=== PATIENT | female | born 1950 | race Caucasian/White ===

== ENCOUNTER → 2024-01-30 | Emergency (ER) | payer OTHER ==
[~2024-01-30] MED LIST: HYDROCODONE/APAP 10/325 TAB ONE; ONDANSETRON 4 MG (ODT) TAB ONE
--- NOTE | 2024-01-30 18:42 | RAD REPORT ---
EXAM DESCRIPTION: RAD - Hip Right 2 View - 01/30/2024 6:17 pm CLINICAL HISTORY: PAIN COMPARISON: None FINDINGS/IMPRESSION: No acute fracture. No malalignment. Mild to moderate right acetabular degenerat meliton changes.
--- NOTE | 2024-01-30 18:42 | RAD REPORT ---
EXAM DESCRIPTION: RAD - Elbow Right 3 View - 01/30/2024 6:17 pm CLINICAL HISTORY: PAIN COMPARISON: No comparisons FINDINGS/IMPRESSION: No acute fracture. No malalignment. No significant focal degenerative changes.
--- NOTE | 2024-01-30 18:49 | EDPHYS ---
Physician Documentation [facility] Name: Arlyn Morocho Age: 74 yrs Sex: Female : 1950 Arrival Date: 01/30/2024 Time: 17:39 Bed 5 Private MD: ED Physician Isaak Michaels HPI: 01/29 17:48 This 74 yrs old Female presents to ER via Unassigned with complaints of fall, hip pain. sb4 17:48 Patient states that she was walking to the restroom, did not see a step, tripped and sb4 fell down onto her right hip. She is complaining of pain to her hip and her right elbow. She did not hit her head, she did not lose any consciousness, she denies any blood thinner use. She does report history of osteoporosis. Historical: - Allergies: 17:52 tramadol; nj1 17:52 Aspirin; nj1 - PMHx: 17:52 Hypertensive disorder; Kidney disease; Osteoporosis; nj1 - Immunization history:: Client reports receiving the 2nd dose of the Covid vaccine. - Social history:: Smoking status: Patient denies any tobacco usage or history of. ROS: 17:48 Constitutional: Negative for fever, chills, and weight loss, sb4 17:48 MS/extremity: Positive for pain, of the right hip, 17:48 All other systems are negative, Exam: 17:48 Constitutional: This is a well developed, well nourished patient who is awake, alert, sb4 and in no acute distress. Head/Face: Normocephalic, atraumatic. Eyes: Extra-ocular motions intact. Periorbital areas with no swelling, redness, or edema. ENT: Mucous membranes moist. Cardiovascular: Regular rate and rhythm with a normal S1 and S2. Respiratory: Lungs have equal breath sounds bilaterally, clear to auscultation and percussion. No rales, rhonchi or wheezes noted. No increased work of breathing, no retractions or nasal flaring. Abdomen/GI: Soft, non-tender, no distension. Skin: Warm, dry with normal turgor. Normal color with no rashes, no lesions, and no evidence of cellulitis. Neuro: Awake and alert, GCS 15, oriented to person, place, time, and situation. Motor strength 5/5 in all extremities. Sensory grossly intact. 17:48 Musculoskeletal/extremity: Pain with palpation to right hip, no deformity noted. Neurovascularly intact. Mild pain with passive ROM of right elbow. Vital Signs: 17:40 BP 142 / 98; Pulse 84; Resp 16; Temp 98.3(O); Pulse Ox 100% on R/A; Weight 68.95 kg; nj1 Height 5 ft. 3 in. ; Pain 8/10; 19:00 BP 128 / 95; Pulse 81; Resp 18; Pulse Ox 97% on R/A; km8 17:40 Body Mass Index 26.93 (68.95 kg, 160.02 cm) nj1 17:40 Pain Scale: Adult nj1 MDM: 17:40 Patient medically screened. sb4 17:48 Differential diagnosis: contusion, fracture, sprain, strain. sb4 18:35 Independent interpretation of the following test(s) in the Emergency Department X-Ray: sb4 My interpretation is my interpretation of the hip and elbow xray images are no acute fracture or dislocation. 18:48 Data reviewed: vital signs, nurses notes, radiologic studies, and as a result, I will sb4 discharge patient. Counseling: I had a detailed discussion with the patient and/or guardian regarding the historical points, exam findings, and any diagnostic results supporting the discharge/admit diagnosis, radiology results, to return to the emergency department if symptoms worsen or persist or if there are any questions or concerns that arise at home. 01/29 17:48 Order name: Hip Right 2 View XRAY; Complete Time: 18:45 sb4 01/29 17:48 Order name: Elbow Right 3 View XRAY; Complete Time: 18:45 sb4 Administered Medications: 18:10 Drug: Mcfarlan PO 10 mg-325 mg 1 tabs PO once Route: PO; ph 19:26 Follow up: Response: No adverse reaction; Pain is decreased km8 18:10 Drug: Ondansetron Oral Disintegrating Tablet Oral Disintegrating Tablet 4 mg PO once ph Route: PO; 19:26 Follow up: Response: No adverse reaction km8 Disposition Summary: 01/30/24 18:49 Discharge Ordered Notes: Location: Home sb4 Problem: new sb4 Symptoms: have improved sb4 Condition: Stable sb4 Diagnosis - Contusion of right hip sb4 Followup: sb4 - With: Emergency Department - When: As needed - Reason: Trouble breathing, Worsening of condition Discharge Instructions: - Discharge Summary Sheet sb4 - Hip Pain sb4 Forms: - Medication Reconciliation Form sb4 - Thank You Letter sb4 - Patient Portal Instructions sb4 - Leadership Thank You Letter sb4 Signatures: Dispatcher [employer] Arlyn Hernandez RN RN mary ellen Jay, Jayashree, ADALBERTO GLOVER sb4 Cristy Mendoza RN RN nj1 Leola Nicole RN km8 Corrections: (The following items were deleted from the chart) 17:57 17:48 Musculoskeletal/extremity: Pain with palpation to right hip, no deformity noted. sb4 Neurovascularly intact. sb4
--- NOTE | 2024-01-30 18:49 | ER ---
Nurse's Notes [facility] Name: Arlyn Morocho Age: 74 yrs Sex: Female : 1950 Arrival Date: 01/30/2024 Time: 17:39 Bed 5 Private MD: Diagnosis: Contusion of right hip Presentation: 01/29 17:40 Chief complaint: Patient states: Missed a step and fell on right hip. Complains of nj1 right hip pain as well as right lower arm pain. Denies hitting head, no loc. 17:40 Coronavirus screen: Vaccine status: Patient reports receiving the 2nd dose of the covid nj1 vaccine. Ebola Screen: Patient denies travel to an Ebola-affected area in the 21 days before illness onset. Initial Sepsis Screen: Does the patient meet any 2 criteria? No. Patient's initial sepsis screen is negative. Does the patient have a suspected source of infection? No. Patient's initial sepsis screen is negative. Risk Assessment: Do you want to hurt yourself or someone else? Patient reports no desire to harm self or others. Onset of symptoms was January 30, 2024. 17:40 Method Of Arrival: Wheelchair nj1 17:40 Acuity: RAMAN 3 nj1 Historical: - Allergies: 17:52 tramadol; nj1 17:52 Aspirin; nj1 - PMHx: 17:52 Hypertensive disorder; Kidney disease; Osteoporosis; nj1 - Immunization history:: Client reports receiving the 2nd dose of the Covid vaccine. - Social history:: Smoking status: Patient denies any tobacco usage or history of. Screenin:[address] [facility] ED Fall Risk Assessment (Adult) History of falling in the last 3 months, ph including since admission Yes- single mechanical fall (1 pt) Confusion or Disorientation No (0 pts) Intoxicated or Sedated No (0 pts) Impaired Gait No (0 pts) Mobility Assist Device Used No (0 pt) Altered Elimination No (0 pt) Score/Fall Risk Level 0 - 2 = Low Risk Oriented to surroundings, Maintained a safe environment, Provided non-skid footwear, Hourly rounding (assess needs \T\ fall precautionary measures) done. Abuse screen: Denies threats or abuse. Denies injuries from another. Nutritional screening: No deficits noted. Tuberculosis screening: No symptoms or risk factors identified. Assessment: 18:37 Pain: Complains of pain in pelvis and right hip. Neuro: Level of Consciousness is ph awake, alert, obeys commands, Oriented to person, place, time, situation. Derm: Skin is pink, warm \T\ dry. Musculoskeletal: Circulation, motion, and sensation intact. Vital Signs: 17:40 BP 142 / 98; Pulse 84; Resp 16; Temp 98.3(O); Pulse Ox 100% on R/A; Weight 68.95 kg; nj1 Height 5 ft. 3 in. ; Pain 8/10; 19:00 BP 128 / 95; Pulse 81; Resp 18; Pulse Ox 97% on R/A; km8 17:40 Body Mass Index 26.93 (68.95 kg, 160.02 cm) nj1 17:40 Pain Scale: Adult [facility] ED Course: 17:40 Patient arrived in ED. sb4 17:40 Jayashree Jay PA-C is PHCP. sb4 17:40 Isaak Michaels MD is Attending Physician. sb4 17:43 Arlyn Weldon RN is Primary Nurse. ph 17:52 Triage completed. nj1 17:53 Arm band placed on left wrist. nj1 18:19 Hip Right 2 View XRAY In Process Unspecified. EDMS 18:19 Elbow Right 3 View XRAY In Process Unspecified. EDMS 18:39 Patient has correct armband on for positive identification. Bed in low position. Call ph light in reach. Side rails up X2. Pulse ox on. NIBP on. Door closed. Noise minimized. Warm blanket given. 19:25 Assisted to bathroom. km8 19:25 Provided Education on: d/c teaching. km8 19:25 No provider procedures requiring assistance completed. Patient did not have IV access km8 during this emergency room visit. Administered Medications: 18:10 Drug: Ramona PO 10 mg-325 mg 1 tabs PO once Route: PO; ph 19:26 Follow up: Response: No adverse reaction; Pain is decreased km8 18:10 Drug: Ondansetron Oral Disintegrating Tablet Oral Disintegrating Tablet 4 mg PO once ph Route: PO; 19:26 Follow up: Response: No adverse reaction km8 Medication: 18:39 VIS not applicable for this client. ph Outcome: 18:49 Discharge ordered by . sb4 19:25 Discharged to home via wheelchair, with family, with significant other, km8 19:25 Condition: good 19:25 Discharge instructions given to patient, family, Instructed on discharge instructions, follow up and referral plans. Demonstrated understanding of instructions, follow-up care, 19:26 Patient left the ED. km8 Signatures: Dispatcher [employer] EDArlyn Siegel RN RN Jayashree Whitaker PAMagan PAMagan sb4 Cristy Mendoza RN RN nj1 Leola Nicole RN RN km8
[2024-01-30 19:34] VITALS: BP 128/95; TEMP 98.3; O2SAT 97
== END ==
LOC: ER 17:39
DX: S70.01XA Contusion of right hip, initial encounter (principal); M25.521 Pain in right elbow; Z88.5 Allergy status to narcotic agent; Z88.6 Allergy status to analgesic agent
CPT/HCPCS: 73502; 73080; 99283; Q0162